=== PATIENT | female | born 1970 | race Hispanic/Latino ===

== ENCOUNTER → 2018-09-28 | Outpatient (CLI) | payer OTHER | END | disposition home or self-care (01) | LOC: SHCH 16:13 | PROVIDERS: ATTEND Internal Medicine Cardiovascular Disease | DX: R00.2 Palpitations (principal) | CPT/HCPCS: 93306 ==

== ENCOUNTER 2025-03-03 14:04 | Emergency (ER) | payer OTHER ==
[~2025-03-03] VITALS: Ht 160 cm; Wt 74.8 kg
--- NOTE | 2025-03-03 14:15 | ERN ---
ED Note History of Present Illness Stated Complaint: CHEST PRESSURE Chief Complaint: Chest Pain Time Seen by MD: 14:06 Dictation: PATIENT IS A 54-YEAR-OLD FEMALE COMING IN TODAY WITH COMPLAINTS OF ANTERIOR CHEST PAIN THAT DOES NOT RADIATE ONSET 1 HOUR PRIOR TO ARRIVAL. SHE STATES SHE WAS AT REST HOWEVER SHE STATES SHE WAS FEELING ANXIOUS ABOUT HER BLOOD PRESSURE. SHE STATES SHE IS BEEN ON TWO DIFFERENT MEDICATIONS, HAD STOPPED HER LISINOPRIL UNILATERALLY AND THEN WENT ON VACATION. SHE STATES SHE WAS HAVING SOME CHEST PRESSURE THEN WENT TO A CLINIC AND THEY TOLD HER THERE WAS NOTHING NECK DUE TO HELP HER. PATIENT OF DR. RYAN, SHE STATES HE HAS WHEN HE STARTED ON THE BLOOD PRESSURE MEDICATIONS AND SHE HAD STOPPED LISINOPRIL UNILATERALLY. SHE STATES SHE STARTED TAKEN IT YESTERDAY WHEN SHE NOTICED HER BLOOD PRESSURE WAS HIGH. PATIENT TAKES LISINOPRIL AND METOPROLOL Allergies: Coded Allergies: No Known Drug Allergies (Unverified Allergy, Unknown, 02/10/24) Past Medical History Past Medical History: Hypothyroid Surgical History: None History: Not Applicable RN Note Reviewed/Agreed w/PFSH: Yes Review of System Dictation CONSTITUTIONAL: NEGATIVE EXCEPT FOR HPI HEAD/FACE: NEGATIVE EXCEPT FOR HPI EENT: NEGATIVE EXCEPT FOR HPI RESPIRATORY: NEGATIVE EXCEPT FOR HPI CHEST PAIN GASTROINTESTINAL/ABDOMINAL: NEGATIVE EXCEPT FOR HPI GENITOURINARY: NEGATIVE EXCEPT FOR HPI MUSCULOSKELETAL: NEGATIVE EXCEPT FOR HPI INTEGUMENTARY: NEGATIVE EXCEPT FOR HPI NEUROLOGICAL/PSYCH: NEGATIVE EXCEPT FOR HPI HEMATOLOGIC/LYMPHATIC: NEGATIVE EXCEPT FOR HPI ALL SYSTEMS NEGATIVE, EXCEPT NOTED ABOVE. 13 POINT REVIEW OF SYSTEMS ASSESSED AND ALL NEGATIVE EXCEPT FOR ABOVE. Initial Vital Sign VS Vital Signs Date Time Temp Pulse Resp B/P (MAP) Pulse Ox O2 Delivery O2 Flow Rate FiO2 03/03/25 14:07 98.8 81 16 165/87 100 Room Air 0 03/03/25 14:52 21 Physical Exam Dictation VITAL SIGNS REVIEWED GENERAL APPEARANCE: ALERT, ORIENTED X 3, NO ACUTE DISTRESS, WELL DEVELOPED, NOURISHED. ANXIOUS, 0/10 PAIN HEAD AND FACE: NON-TRAUMATIC. EYES: PERRL, PINK CONJUNCTIVAS, EYELID NO TRAUMA, ANTERIOR CHAMBER WITH ARCUS SENILIS. EARS: PINNAS INTACT AND NO SIGNS OF TRAUMA OR ERYTHEMA EAR CANALS CLEAR AND NO DISCHARGE TM NO ERYTHEMA NOSE: NO DISCHARGE, NO BLEEDING. OROPHARYNX: MOUTH NORMAL, TONGUE PINK, PHARYNX CLEAR,NO ERYTHEMA, TONSILS NO EXUDATES, NO ABSCESSES NOTED, MUCOUS MEMBRANE MOIST NECK: SUPPLE, NON-TENDER, NO THYROMEGALY, NO MASSES, NO JVD, NO BRUITS BREAST:DEFERRED CHEST:NO TENDERNESS, NO CREPITUS, NO PARADOXICAL MOVEMENT, NO RETRACTIONS LUNGS:CLEAR, WELL-VENTILATED, SYMMETRIC, NO RALES, NO WHEEZING, NO RHONCHI, NO STRIDOR, GOOD BREATH SOUNDS BILATERALLY HEART: REGULAR RATE, REGULAR RHYTHM, NO MURMUR, NO GALLOPS VASCULAR: NO PERIPHERAL EDEMA, ABDOMEN: SOFT, POSITIVE BOWEL SOUNDS, NONDISTENDED, NO GUARDING, NONTENDER, NO REBOUND, NO MASSES NO HEPATOMEGALY, NO SPLENOMEGALY, NO CHASE'S SIGN, NO HERNIAS. RECTAL: DEFERRED GENITAL: DEFERRED NEUROLOGICAL: NORMAL SPEECH, MOTOR FUNCTION INTACT, SENSORY FUNCTION INTACT MUSCULOSKELETAL: NECK NONTENDER, FULL RANGE OF MOTION, BACK NONTENDER, FULL RANGE OF MOTION, EXTREMITIES: NONTENDER, FULL RANGE OF MOTION SKIN: COLOR PINK, DRY, NO TURGOR, NO RASH, NO LACERATIONS, NO ABRASIONS, NO CONTUSIONS. LYMPHATIC: DEFERRED Results (Laboratory/Radiology) Laboratory/Radiology Laboratory Tests Test 03/03/25 14:18 White Blood Count 4.4 K/uL (4.8-10.8) L Red Blood Count 4.71 MIL/uL (4.00-5.50) Hemoglobin 15.1 g/dL (12.0-16.0) Hematocrit 43.0 % (36-48) Mean Corpuscular Volume 91.3 fL (79-99) Mean Corpuscular Hemoglobin 32.1 pg (27.0-33.0) Mean Corpuscular Hemoglobin Concent 35.1 g/dL (32.0-36.0) Red Cell Distribution Width 12.1 % (11.0-15.5) Platelet Count 209 K/uL (130-400) Mean Platelet Volume 9.8 fL (7.5-10.5) Immature Granulocyte % (Auto) 0.2 % (0-1) Neutrophils (%) (Auto) 65.0 % (40.0-77.0) Lymphocytes (%) (Auto) 26.2 % (21.0-51.0) Monocytes (%) (Auto) 7.7 % (3.0-13.0) Eosinophils (%) (Auto) 0.0 % (0.0-8.0) Basophils (%) (Auto) 0.9 % (0.0-5.0) Neutrophils # (Auto) 2.9 K/uL (1.8-7.7) Lymphocytes # (Auto) 1.2 K/uL (1.0-4.8) Monocytes # (Auto) 0.3 K/uL (0.1-1.0) Eosinophils # (Auto) 0.00 K/uL (0.00-0.70) Basophils # (Auto) 0.04 K/uL (0.00-0.20) Absolute Immature Granulocyte (auto 0.01 K/uL (0-1) Nucleated Red Blood Cells 0.0 % (0.0-0.19) Sodium Level 137 mmol/L (136-145) Potassium Level 4.0 mmol/L (3.5-5.1) Chloride Level 101 mmol/L (101-111) Carbon Dioxide Level 29 mmol/L (21-32) Blood Urea Nitrogen 9 mg/dL (7-18) Creatinine 0.7 mg/dL (0.5-1.0) Glomerular Filtration Rate Calc 102 mL/min (>90) Random Glucose 95 mg/dL (70-105) Total Calcium 10.2 mg/dL (8.5-10.1) H Magnesium Level 1.90 mg/dL (1.80-2.40) Troponin I High Sensitivity 8 ng/L (4-50) 1455, CHEST X-RAY NEGATIVE Labs Reviewed?: Yes EKG: (+) NSR EKG Comment: EKG NORMAL SINUS RHYTHM/HEART RATE 72/AXIS NORMAL/NO ECTOPY ED Course ED Course Orders Procedure Category Date Status Time Cbc With Differential LAB 03/03/25 Complete 14:11 Chest 1vw RAD 03/03/25 Resulted 14:11 12 Lead Ekg Tracing- EKG 03/03/25 Logged Technical 14:11 Magnesium LAB 03/03/25 Complete 14:11 Troponin I High LAB 03/03/25 Complete Sensitivity 14:11 Aspirin 325mg Tab PHA 03/03/25 Complete (Aspirin 325mg Tab) 14:30 Basic Metabolic Panel LAB 03/03/25 Complete 14:11 Clonidine Hcl 0.1 Mg PHA 03/03/25 Complete Tablet (Catapres 0. 15:30 Current Medications Medications (Trade) Dose Ordered Sig/Be Route PRN Reason Start Time Stop Time Status Last Admin Dose Admin Aspirin (Aspirin 325mg Tab) 325 mg ONCE ONCE PO 03/03/25 14:30 03/03/25 14:31 DC 03/03/25 14:20 Clonidine HCl (CATApres 0.1 mg TAB) 0.1 mg ONCE ONCE PO 03/03/25 15:30 03/03/25 15:31 DC 03/03/25 15:24 Vital Signs Date Time Temp Pulse Resp B/P (MAP) Pulse Ox O2 Delivery O2 Flow Rate FiO2 03/03/25 15:24 68 165/91 03/03/25 14:52 98.2 75 20 180/94 98 Room Air* 0 21 03/03/25 14:07 98.8 81 16 165/87 100 Room Air 0 1530, BLOOD PRESSURE 180/93 WE WILL GIVE CLONIDINE 0.1 P.O.1625/ 16REPEAT BLOOD PRESSURE 161/89. PATIENT WILL BE DISCHARGED HOME WITH INCREASE METOPROLOL TO 50 MG DAILY AND LEAVE LISINOPRIL UNTIL PATIENT TO TAKE BOTH DIRECTED. SEE HER PRIMARY CARE DOCTOR IN THE ONE OR TWO DAYS ALL QUESTIONS ANSWERED HEART Score Response (Comments) Value History: Low suspicion (0) 0 Age: 45-65yrs (+1) 1 Risk Factors: 1-2 risk factors (+1) 1 Initial Troponin: Normal limit (0) 0 Total 2 Medical Decision Making MDM MDM: DIFFERENTIAL DIAGNOSIS: ACS/AMI/ELECTROLYTE IMBALANCE/DEHYDRATION/ANXIETY/NONC OMPLIANT RATIONALE: TESTS CONSIDERED AND ORDERED SECONDARY TO SHARED DECISION MAKING INCLUDE: EKG/LABS PREVIOUS OUTSIDE RECORDS REVIEWED: OLD ER VISITS. RISK OF COMPLICATION AND/OR MORBIDITY OR MORTALITY OF PATIENT MANAGEMENT: NONE MEDICATIONS-PER MEDICATION RECONCILIATION NEED FOR HOSPITALIZATION: PATIENT DOES NOT MEET CRITERIA FOR HOSPITALIZATION. NO THERE ARE NO SOCIAL CONCERNS WITH THIS PATIENT. PRESCRIPTION DRUG MANAGEMENT INCREASE METOPROLOL TO 50 MG DAILY, LISINOPRIL WE WILL STAY PRESCRIBED AND WE WILL SEE HER DOCTOR PRESCRIPTIONS WILL INCLUDE SYMPTOMATIC CARE PATIENT'S PRIOR EXTERNAL MEDICAL RECORDS FROM OTHER ER VISITS WERE REVIEWED BY ME INDICATED. PRIOR TESTING AND RESULTS FROM PREVIOUS VISITS WERE REVIEWED. PRIOR TESTS WERE TAKEN INTO ACCOUNT WITH MEDICAL DECISION MAKING AND RESOURCE UTILIZATION, INDEPENDENT HISTORIAN/HISTORIANS WERE USED TO OBTAIN COMPLETE M EDICAL HISTORY. I INDEPENDENTLY INTERPRETED THE TEST THAT WERE PERFORMED, RESULTS WERE REVIEWED BY ME AND CONSIDERED FINDINGS ON RADIOLOGY IF ORDERED. MEDICAL MANAGEMENT AND EXAMINATION INTERPRETATION DISCUSSIONS WERE HAD BY ME WITH OTHER QUALIFIED HEALTHCARE PROFESSIONALS INDICATED FOR THE PATIENT'S CARE. DX & DISP Disposition: Discharge Departure Impression: Primary Impression: Non-cardiac chest pain Additional Impressions: Accelerated hypertension, Noncompliance Condition: Stable Scripts Metoprolol Tartrate (Metoprolol Tartrate) 50 Mg Tablet 50 MG PO DAILY, #30 TAB Prov: NITA PULIDO NP 03/03/25 Additional Instructions: FOLLOW-UP WITH PRIMARY CARE PROVIDER IN 1 TO 2 DAYS. TAKE MEDICATIONS DIRECTED HERE IN THE EMERGENCY ROOM. OKAY TO CONTINUE HOME MEDICATIONS UNLESS OTHERWISE DISCUSSED DURING YOUR VISIT IN THE EMERGENCY ROOM TODAY. RETURN TO YOUR NEAREST EMERGENCY ROOM IF SYMPTOMS WORSEN OR IF THERE IS NO IMPROVEMENT. CALL 911 IF YOU NEED IMMEDIATE ASSISTANCE. TAKE TYLENOL OR MOTRIN [id number] NEEDED AND IF NO CONTRAINDICATIONS ARE PRESENT. INCREASE ORAL HYDRATION. A WOUND CULTURE OR URINE CULTURE WAS ORDERED HERE IN THE EMERGENCY ROOM DEPARTMENT PLEASE FOLLOW-UP WITH PRIMARY CARE PROVIDER AND ADVISE THEM TO GET REPEAT PORTS FROM OUR FACILITY. IF YOU HAD ANY ALEC WRAP/SPLINTS THAT WERE APPLIED HERE, PLEASE DO NOT REMOVE THEM UNTIL YOU SEE YOUR PRIMARY CARE OR SPECIALTY. SEE YOUR PRIMARY CARE DOCTOR IN 1-2 DAYS. TAKE LISINOPRIL DIRECTED. INCREASE METOPROLOL TO 50 MG DAILY. Referrals: KENNETH BECKMAN (PCP) Time of Disposition: 16:29 I have reviewed the case, and I agree with, Diagnosis and Plan NITA PULIDO NP Mar 03, 2025 14:15
[2025-03-03] MEDS: ASPIRIN 325MG TAB PO ONE (14:20)
[2025-03-03 14:26] LABS: IMMATURE GRANULOCYTE ABSOLUTE 0.01 K/uL (0-1); NUCLEATED RED BLOOD CELLS 0.0 % (0.0-0.19); PLATELET COUNT (AUTO) 209 K/uL (130-400); RED BLOOD CELL COUNT(AUTO) 4.71 MIL/uL (4.00-5.50); RED CELL DISTRIBUTION WIDTH 12.1 % (11.0-15.5); WHITE BLOOD COUNT (AUTO) 4.4 K/uL (4.8-10.8)
[2025-03-03 14:49] LABS: CREATININE 0.7 mg/dL (0.5-1.0); GLOMERULAR FILTR. RATE CALC 102.0 mL/min (>90); GLUCOSE,RANDOM 95.0 mg/dL (70-105); SODIUM SERUM 137.0 mmol/L (136-145); UREA NITROGEN, BLOOD 9.0 mg/dL (7-18)
--- NOTE | 2025-03-03 14:57 | HMCIMG ---
EXAM: CR Chest, 1 View. CLINICAL HISTORY: CHEST PAIN COMPARISON: None provided. FINDINGS: LUNGS: The lungs show no infiltrate or other acute finding. PLEURAL SPACES: No pleural effusion or pneumothorax. MEDIASTINUM: The cardiomediastinal silhouette is within normal limits. BONES: No acute osseous abnormality. IMPRESSION: No acute cardiopulmonary pathology is evident. /Jarratt
[2025-03-03] MEDS ORDERED: METO50TA18 PO (16:30)
[2025-03-03 16:52] VITALS: BP 153/83; PULSE 70; RESP 20; TEMP 98; O2SAT 100
--- NOTE | 2025-03-04 07:39 | EKG ---
[facility] Test Date: 2025-03-03 Test Time: 13:56:40 Pat Name: VANDANA GIVENS Department: ED Room: Gender: F Records Officer: [id number] : 1970 Requested By: NITA PULIDO Order Number: [id number] Reading MD: Albania Bland Measurements Intervals Admire Rate: 72 P: 56 LA: 149 QRS: -24 QRSD: 95 T: 54 QT: 396 QTc: 433 Interpretive Statements Sinus rhythm Compared to ECG 02/10/2024 01:16:13 Poor R-wave progression no longer present Electronically Signed On 03-04-2025 15:29:46 CDT by Albania Bland Please click the below link to view image of tracing.
== END 2025-03-03 16:53 | disposition home or self-care (01) ==
LOC: EDH 14:04
DX: R07.89 Other chest pain (principal); I10 Essential (primary) hypertension; E03.9 Hypothyroidism, unspecified; Z79.899 Other long term (current) drug therapy; Z91.199 Patient's noncompliance with other medical treatment and regimen due to unspecified reason
CPT/HCPCS: 36415; 71045; 80048; 83735; 84484; 85025; 93005; 99285